=== PATIENT | female | born 1950 | race Caucasian/White ===

== ENCOUNTER → 2016-05-05 | Outpatient (CLI) | payer MEDICARE, OTHER ==
[2016-05-05 10:34] LABS: ABSOLUTE EOSINOPHILS # (AUTO) 0.1 10^3/uL (0.0-0.6); ABSOLUTE LYMPHOCYTES (AUTO) 1.3 10^3/uL (0.5-4.7); ABSOLUTE MONOCYTES (AUTO) 0.3 10^3/uL (0.1-1.4); ABSOLUTE NEUT (AUTO) 2.7 10^3/uL (1.7-8.2); BASOPHILS % (AUTO) 0.4 % (0-2); EOSINOPHILS % (AUTO) 3.1 % (0-6); HEMATOCRIT 41.8 % (36.0-47.0); HEMOGLOBIN 14.3 g/dL (12.0-15.5); HGB HCT DIFFERENCE 1.1; LYMPHOCYTES % (AUTO) 30.1 % (13-45); MEAN CORPUSCULAR HEMOGLOBIN 30.4 pg (27.0-33.4); MEAN CORPUSCULAR HGB CONC 34.2 g/dL (32.0-36.0); MEAN CORPUSCULAR VOLUME 89 fl (80-97); MONOCYTES % (AUTO) 6.7 % (3-13); RED CELL DISTRIBUTION WIDTH 12.1 % (11.5-14.0); SEGMENTED NEUTROPHILS % (AUTO) 59.7 % (42-78); WHITE BLOOD COUNT 4.5 10^3/uL (4.0-10.5)
[2016-05-05 10:56] LABS: ALANINE AMINOTRANSFERASE 32 U/L (9-52); ALKALINE PHOSPHATASE 50 U/L (38-126); ANION GAP 9 (5-19); ASPARTATE AMINO TRANSFERASE 29 U/L (14-36); BILIRUBIN,TOTAL 1.1 mg/dL (0.2-1.3); BLOOD UREA NITROGEN 18 mg/dL (7-20); CALCIUM 9.3 mg/dL (8.4-10.2); CARBON DIOXIDE 31 mmol/L (22-30); CHLORIDE 100 mmol/L (98-107); Direct HDL 51 mg/dL (>40); GLUCOSE 95 mg/dL (75-110); POTASSIUM 4.4 mmol/L (3.6-5.0); SODIUM 140.2 mmol/L (137-145); TOTAL PROTEIN 7.1 g/dL (6.3-8.2); TRIGLYCERIDES 105 mg/dL (<150)
[2016-05-05 11:07] LABS: DIRECT LDL 164 mg/dL (<100)
== END ==
LOC: OD 09:58
PROVIDERS: ATTEND Internal Medicine
DX: I10 Essential (primary) hypertension (principal); Z79.899 Other long term (current) drug therapy; G43.719 Chronic migraine without aura, intractable, without status migrainosus; M43.22 Fusion of spine, cervical region
CPT/HCPCS: 36415; 80053; 80061; 85025

== ENCOUNTER 2019-02-27 04:14 | Emergency (ER) | payer MEDICARE, OTHER ==
--- NOTE | 2019-02-27 06:55 | RADIOLOGY REPORT (SQ) ---
EXAM: X-ray RIBS two views unilateral CLINICAL DATA: 69-year-old female with anterior right rib pain status post fall TECHNICAL DATA: Two x-ray views of the right ribs were performed on 02/27/2019 at 5:02 AM. COMPARISONS: None FINDINGS: No definite acute rib fracture is identified. No focal lytic or sclerotic bone lesions are seen. There are costochondral cartilage calcifications. The visualized right hemithorax is unremarkable. There is no evidence of a pneumothorax. There are remote postsurgical changes of the cervical spine and lumbar spine. Bone mineralization is normal. No focal soft tissue abnormalities are identified. IMPRESSION: No evidence of acute osseous injury involving the right sided ribs.
--- NOTE | 2019-02-27 08:31 | ER Document Report ---
HPI - HPI Time Seen by Provider: 02/27/19 08:08 Pain Level: 3 Notes: Patient is a 69-year-old female who presents complaining of pain right under the right breast area where she has had surgery previously. Patient states that she usually has pain in this area since having robotic surgery with subsequent nerve irritation. Pt states that she did start to notice a rash this morning. Pain does not radiate. Pt states that she has had issues with fungal infections to this area. Pt reports losing her footing in the grass and falling forward, but does not recall any injury to the area. Pt is adamantly denying any head injury or LOC. Pt states that she just wants to see if she has a broken rib with an XR and is ready to go home otherwise. She has been here since the middle of the night and is very upset otherwise and needs to go home to take care of her husb and. Denies any headache, fever, head injury, neck pain, changes in vision/speech/mentation/hearing, URI, sore throat, chest pain, palpitations, syncope, cough, shortness of breath, wheeze, dyspnea, abdominal pain, nausea/vomiting/diarrhea, urinary retention, dysuria, hematuria, loss of control of bowel or bladder, numbness/tingling, saddle anesthesia, muscle paralysis/weakness. - ROS Systems Reviewed and Negative: Yes All other systems reviewed and negative Past Medical History - Social History Smoking Status: Never Smoker Family History: Reviewed & Not Pertinent Patient has suicidal ideation: No Patient has homicidal ideation: No Neurological Medical History: Reports: Hx Migraine Past Surgical History: Reports: Hx Cardiac Surgery - heart valve replacement, Hx Section, Hx Orthopedic Surgery - neck, back fusion, Vertical Provider Document - CONSTITUTIONAL Agree With Documented VS: Yes Notes: PHYSICAL EXAMINATION: GENERAL: Well-appearing, well-nourished and in no acute distress. HEAD: Atraumatic, normocephalic. EYES: Pupils equal round and reactive to light, extraocular movements intact, sclera anicteric, conjunctiva are normal. ENT: EAC clear b/l. TM's intact b/l without erythema, fluid, or perforation. Nares patent and without discharge. oropharynx clear without exudates. No tonsilar hypertrophy or erythema. Moist mucous membranes. No sinus tenderness. NECK: Normal range of motion, supple without lymphadenopathy LUNGS: Breath sounds clear to auscultation bilaterally and equal. No wheezes rales or rhonchi. HEART: Regular rate and rhythm without murmurs, rubs, gallops. ABDOMEN: Soft, nontender, nondistended abdomen. No guarding, no rebound. Normal bowel sounds present. No CVA tenderness bilaterally. Musculoskeletal: FROM to passive/active. Strength 5+/5. Extremities: No cyanosis, clubbing, or edema b/l. Peripheral pulses 2+. Capillary refill less than 3 seconds. NEUROLOGICAL: Cranial nerves grossly intact. Normal speech, normal gait. Normal sensory, motor exams PSYCH: Normal mood, normal affect. SKIN: Rt breast fold: there is a macular mildly erythemic rimmed area (approx 1cm). Nontender. She has 2 satellite small maculpapular erythemic areas without vesicles nearby that are nontender. Pt does have sensitivity to the local skin otherwise, but states that it is partly her chronic pain to the area. No induration, fluctuance, streaks. - INFECTION CONTROL TRAVEL OUTSIDE OF THE [place] IN LAST 30 DAYS: No Course - Re-evaluation Re-evalutation: 02/27/19 08:38 Patient is an afebrile, well-hydrated, 69-year-old female who presents with a nonspecific skin rash underneath the right breast, I do suspect primary to be tinea cruris. I did review with the patient that if she is starting to have a rash and some pain in that area that I cannot adequately rule out early shingles. Vitals are acceptable without significant tachycardia, tachypnea, or hypoxia. PE is otherwise unremarkable. Patient is nontoxic-appearing and is tolerating p.o. without difficulty. Rib x-ray unremarkable. Lungs clear to auscultation bilaterally. No further work-up warranted at this time. I did offer the patient antiviral medication which she declined. I will send her home with [facility]. Low suspicion for any fracture, necrotizing fasciitis, SJS, SSS, drug reaction, sepsis, meningitis, syphilis, Lyme disease, Conger spotted fever, or other systemic emergent condition at this time. Patient aware that condition can change from initial presentation and she needs to monitor symptoms closely and seek medical attention with any acute changes. Recheck with your PCM in 2 to 3 days or sooner if the rash worsens into more of a shingles presentation as reviewed. Consider consult with dermatology. Return to the ED with any other worsening/concerning symptoms as reviewed. Patient is in agreement. - Vital Signs Vital signs: Temp Pulse Resp BP Pulse Ox 97.5 F 97 18 145/88 H 97 02/27/19 04:18 02/27/19 04:18 02/27/19 04:18 02/27/19 04:18 02/27/19 04:18 Discharge - Discharge Clinical Impression: Rib pain on right side Condition: Stable Disposition: HOME, SELF-CARE Additional Instructions: Rest, Ice Keep skin clean and dry Tylenol/ibuprofen as needed Light stretches daily If any worsening painful rash, consider shingles and f/u with your PCM tomorrow. Strength exercises as able Moist heat and massage may help F/u with your PCP in 3-5 days for a recheck Return to the ED with any worsening symptoms and/or development of fever, headache, chest pain, palpitations, syncope, shortness of breath, trouble breathing, abdominal pain, n/v/d, muscle weakness/paralysis, numbness/tingling, swelling, redness, or other worsening symptoms that are concerning to you. Prescriptions: Clotrimazole [Athletic Foot Cream] 1 applic TP BID #30 gm Forms: Elevated Blood Pressure Referrals: EMEKA TALBOT MD [Primary Care Provider] - Follow up as needed
[2019-02-27 08:50] VITALS: BP 129/85
== END 2019-02-27 08:50 | disposition home or self-care (01) ==
LOC: ER 04:14
DX: R07.81 Pleurodynia (principal); R21 Rash and other nonspecific skin eruption
CPT/HCPCS: 99283